=== PATIENT | female | born 1970 | race Two or more races ===

== ENCOUNTER 2020-09-04 11:00 | Day surgery (SDC) | payer OTHER | END 2020-09-04 15:30 | disposition home or self-care (01) | LOC: AMB-ENDOS 11:00 | PROVIDERS: ATTEND Surgery | DX: D12.5 Benign neoplasm of sigmoid colon (principal); K64.8 Other hemorrhoids; Z20.828 Contact with and (suspected) exposure to other viral communicable diseases ==